=== PATIENT | male | born 1955 | race Caucasian/White ===

== ENCOUNTER 2023-03-29 08:53 | Day surgery (SDC) | payer OTHER ==
[~2023-03-29] VITALS: Ht 185.4 cm; Wt 98.9 kg
[2023-03-29] VITALS (8 sets, daily range): BP systolic 114–140; BP diastolic 62–104
[~2023-03-29 08:53] MED LIST: AMLO5 PO; Aspir 8181 MG PO; BAYER PM CAPLE1 EACH PO; Flovent Diskus50 MCG IH; LISI5 PO; NITR.4SL SL; Naltrexone HCl50 MG PO; TADA10TA; TADA10TA PO; TAMS.4ER PO; ZOCOR20 MG PO
[2023-03-29] MEDS ORDERED: Flonase 0.05% N16 GM (09:10)
--- NOTE | 2023-03-29 10:50 | NUR ---
ASSUMED CARE OF PT POST PROCEDURE. PT AWAKE AND CONVERSING APPROPRIATELY; DENIES CHEST PAIN POST PROCEDURE. MONITOR SB/SR 50-60'S, B/P 134/91, SPO2 94% RA, AFEBRILE. R RADIAL SITE NO SWELLING/HEMATOMA, TR BAND IN PLACE; RUE POSITIVE PLEUTH POST TR BAND PLACEMENT.
--- NOTE | 2023-03-29 13:25 | NUR ---
PT DRESSED SELF WITHOUT ISSUE, SITE UNCHANGED. TR BAND REMOVED, CLOTH DOT AND WRIST IMMOBILZIER PLACED; IV REMOVED-CANNULA INTACT.
--- NOTE | 2023-03-29 13:33 | NUR ---
PT AND RECEIVED DISCHARGE INSTRUCTIONS, SITE MANAGEMENT, MED LIST AND AFTER CARE INSTRUCTIONS; VERBALIZED GOOD UNDERSTANDING. PT LEFT FACILITY VIA W/C, CONDITION STABLE.
== END 2023-03-29 13:33 | disposition home or self-care (01) ==
LOC: MHTC 08:53
DX: I25.10 Atherosclerotic heart disease of native coronary artery without angina pectoris (principal); R07.9 Chest pain, unspecified; E78.5 Hyperlipidemia, unspecified; I11.0 Hypertensive heart disease with heart failure; I25.5 Ischemic cardiomyopathy; I50.20 Unspecified systolic (congestive) heart failure
CPT/HCPCS: 76937; 93454; 99152; A9270; C1769; C1887; C1894; J1644; J2250; J3010; J7030; J7050; Q9967